=== PATIENT | female | born 1975 | race Caucasian/White ===

== ENCOUNTER 2021-11-11 16:15 | Emergency (ER) | payer OTHER, SELFPAY ==
[2021-11-11] MEDS ORDERED: Ondansetron ODT 4 MG TAB ONE (17:10)
== END 2021-11-11 17:32 | disposition home or self-care (01) ==
LOC: ERS 16:15
DX: U07.1 COVID-19 (principal)
CPT/HCPCS: 99283; Q0162; U0003; U0005